=== PATIENT | female | born 1965 | race Caucasian/White ===

== ENCOUNTER 2017-11-10 12:34 | Day surgery (SDC) | payer SELFPAY ==
[2017-11-10 13:02] VITALS: BP 109/67; PULSE 102; RESP 16; TEMP 99.2; O2SAT 97
[2017-11-10 14:00] VITALS: BP 124/78; PULSE 77; RESP 18; TEMP 98.2; O2SAT 96
--- NOTE | 2017-11-10 14:13 | RADRPT ---
EXAM DATE: 11/10/2017 2:00 PM EDT AGE/SEX: 51 years / Female INDICATIONS: Right thyroid nodule. CLINICAL DATA: This is the patient's initial encounter. Patient reports that signs and symptoms have been present for 1 day and indicates a pain score of 0/10. MEDICAL/SURGICAL HISTORY: . Hyperthyroidism. Hypertension. Atrial fibrillation. sect ion. Cholecystectomy. Appendectomy. COMPARISON: No prior exams available for comparison. ORGAN: Right neck. SPECIMEN(S): Four DEVICE(S): 22 gauge needle 25 gauge needle Post procedure scanning reveals no hematoma or other complication. The possibility does exist that the tissue obtained will be non-diagnostic. If the sample is non-diag nostic, a repeat biopsy or surgical biopsy may need to be performed. TECHNIQUE: 1. Ultrasound guidance for needle biopsy. 2. Needle biopsy. 3. 4. . . The risks, benefits and alternatives to the procedure were explained and verbal and written consent w as obtained. The site was prepped in sterile fashion. Full sterile technique was used, including ca p, mask, sterile gloves and gown and a large sterile sheet. Hand hygiene and 2% chlorhexidine and/or betadine/alcohol prep was utilized per protocol for cutaneous antisepsis. The skin and subcutaneous tissues were infiltrated with local anesthetic solution. Sterile gel and sterile probe cover were u tilized for ultrasound guidance. With the patient on the ultrasound table, images were obtained. There is an echogenic solid and cyst ic right thyroid nodule measuring 2.5 x 2.1 x 2.1 cm. A needle was advanced into the identified target and the number of specimens as above obtained and abel bmitted for pathologic evaluation. The patient tolerated the procedure well and left the ultrasound suite in stable condition. CONCLUSION: Uncomplicated right thyroid nodule biopsy, as above. Electronically signed by: Sachin Cheung MD 11/10/2017 2:12 PM EDT
[2017-11-10 14:15] VITALS: BP 123/72; PULSE 79; RESP 19; O2SAT 98
--- NOTE | 2017-11-10 14:43 | PD.RAD ---
Post US Procedure Prog Note Pre Procedure Diagnosis: (1) Right thyroid nodule Post Procedure Diagnosis: (1) Right thyroid nodule Procedure Date: Nov 10, 2017 Supervising Radiologist: Sachin Cheung Proceduralist/Assist: Tamiko Bragg RDMS Anesthesia: Local Plan of Activity Patient to Unit: ROPU Patient Condition: Good See PACS Report for procedural detail/treatment Biopsy Imaging Guidance: Ultrasound Side: Right Biopsy Procedure: Thyroid Specimen: Fine Needle Aspirate Additional Detail: 4 FNAs performed. Plan to ROPU then discharge in 30 minutes. Sachin Cheung MD Nov 10, 2017 14:43
== END 2017-11-10 14:29 | disposition home or self-care (01) ==
LOC: HRAD 12:34 → HRIP 12:43 → HRAD 14:29
PROVIDERS: ATTEND Family Medicine
DX: E04.1 Nontoxic single thyroid nodule (principal); E05.90 Thyrotoxicosis, unspecified without thyrotoxic crisis or storm; I48.91 Unspecified atrial fibrillation; I10 Essential (primary) hypertension
CPT/HCPCS: 10022; 76942; 88172; 88173